=== PATIENT | female | born 1990 | race African-American/Black ===

== ENCOUNTER 2022-07-05 14:40 | Emergency (ER) | payer BC ==
[~2022-07-05] VITALS: Ht 160 cm; Wt 82.6 kg
[2022-07-05 15:28] LABS: HEMATOCRIT 41.2 % (31.2-41.9); MEAN CORPUSCULAR HEMOGLOBIN 27.4 uug (24.7-32.8); MEAN CORPUSCULAR VOLUME 82.9 fL (75.5-95.3); PLATELET COUNT (AUTO) 228 K/uL (179-408)
[2022-07-05 15:33] LABS: CARBON DIOXIDE 26 mmol/L (21-32); CHLORIDE 104 mmol/L (98-107); CREATININE 0.7 mg/dL (0.6-1.3); GLUCOSE 88 mg/dL (74-106); POTASSIUM 3.9 mmol/L (3.5-5.1); UREA NITROGEN, BLOOD 8 mg/dL (7-18)
[2022-07-05 15:37] LABS: *BILIRUBIN,URIN NEGATIVE (NEGATIVE); *BLOOD, URINE NEGATIVE (NEGATIVE); *CLARITY,URINE CLEAR (CLEAR); *COLOR,URINE YELLOW (YELLOW); *KETONES,URINE NEGATIVE (NEGATIVE); *UROBILINOGEN,URINE 0.2 E.U./dl (NORMAL); LEUKOCYTE ESTERASE ,URINE NEGATIVE (NEGATIVE); NITRITE, URINE NEGATIVE (NEGATIVE); PH,URINE 6.5 (5.0-8.0); UGLUCOSE NEGATIVE (NEGATIVE)
[2022-07-05 15:38] LABS: *URINE HCG, QUAL NEG (NEGATIVE)
[2022-07-05 15:39] LABS: ALANINE AMINOTRANSFERASE 10 U/L (14-59); ALKALINE PHOSPHATASE 71 U/L (50-136); ASPARTATE AMINOTRANSFERASE 11 U/L (15-37); BILIRUBIN,DIRECT < 0.1 mg/dL (0.0-0.2); BILIRUBIN,TOTAL 0.3 mg/dL (0.2-1.0); LIPASE 114 U/L (73-393); TOTAL PROTEIN, SERUM 7.7 g/dL (6.4-8.2)
[2022-07-05] MEDS ORDERED: IBUPROFEN 600 MG TABLET ONE (16:59)
[2022-07-05] MEDS ORDERED: IBUPROFEN 600 MG TABLET PO ONE (17:00)
== END 2022-07-05 17:14 | disposition home or self-care (01) ==
LOC: ER 14:40
DX: R10.32 Left lower quadrant pain (principal)
CPT/HCPCS: 36415; 76856; 83690; 84703; 85025; A4663